=== PATIENT | male | born 1960 | race Caucasian/White ===

== ENCOUNTER → 2017-11-23 | Outpatient (CLI) | payer BC ==
--- NOTE | 2017-11-23 11:24 | Diagnostic Imaging Report ---
PROCEDURE:US RETROPERITONEAL ( KIDNEY ). COMPARISON:Renal ultrasound 11/06/2016 INDICATIONS:Microscopic Hematuria, followup cyst TECHNIQUE: Cherry-scale and color sonographic images of the bilateral kidneys and bladder where obtained in transverse and longitudinal planes. FINDINGS: RIGHT KIDNEY: 12.1 x 6 x 6.2 cm, cortex 2 cm Cysts: None Solid masses: None Stones: None Hydronephrosis: None Echogenicity: Normal LEFT KIDNEY: 12.2 x 6.4 x 6.8 cm, cortex 2.2 cm Cysts: Interpolar region 2.6 x 2.8 x 3.6 cm anechoic simple cyst (previously 2.3 x 2.5 x 3.1 cm). Solid masses: None Stones: None Hydronephrosis: None Echogenicity: Normal Bladder: Partially filled. Both ureteral jets visualized. Prostate: 2.8 x 2.6 x 3.9 cm (14.5 cc), within normal size limits. CONCLUSION: Left renal simple cyst. Otherwise, unremarkable renal ultrasound exam. Dictated by: Shar Sneed M.D. on 11/23/2017 at 11:23 Electronically approved by: Shar Sneed M.D. on 11/23/2017 at 11:23
== END ==
LOC: US 09:06
PROVIDERS: ATTEND Urology
DX: R31.9 Hematuria, unspecified (principal)
CPT/HCPCS: 76770

== ENCOUNTER → 2018-10-11 | Outpatient (CLI) | payer BC ==
--- NOTE | 2018-10-11 10:22 | Diagnostic Imaging Report ---
RENAL ULTRASOUND TECHNIQUE: Ultrasound evaluation of the KIDNEYS. Color Doppler evaluation was utilized to supplement the evaluation. HISTORY: Cyst of kidney COMPARISON: Renal ultrasound November 23, 2017 DISCUSSION: RIGHT KIDNEY: The right kidney measures 11 cm in length. The cortex measures 1.6 cm in thickness. Parenchyma is within normal limits. No hydronephrosis or solid mass lesions. LEFT KIDNEY: The left kidney measures 12 cm in length. The cortex measures 2 cm in thickness. No hydronephrosis or solid mass lesions. The simple appearing, partially exophytic, left renal cyst appears similar to the comparison when allowing for interobserver variance. Previously measuring up to 3.6 cm, currently measuring up to 3.3 cm. BLADDER: The urinary bladder is predominantly decompressed. IMPRESSION: Stable, simple left renal cyst. Signed by: Dr. Micheal Davila D.O., M.M.M. on 10/11/2018 10:19 AM
== END ==
LOC: US 08:44
PROVIDERS: ATTEND Urology
DX: N28.1 Cyst of kidney, acquired (principal)
CPT/HCPCS: 76770